=== PATIENT | male | born 1995 | race African-American/Black ===

== ENCOUNTER 2018-11-10 21:43 | Emergency (ER) | payer SELFPAY ==
[~2018-11-10] VITALS: Ht 172.7 cm; Wt 80.9 kg
[2018-11-10 21:51] VITALS: Ht 172.7 cm; Wt 80.9 kg
[2018-11-10 22:37] VITALS: BP 135/64
== END 2018-11-10 22:37 | disposition home or self-care (01) ==
LOC: ED 21:43
DX: L25.9 Unspecified contact dermatitis, unspecified cause (principal)